=== PATIENT | female | born 1990 | race Caucasian/White ===

== ENCOUNTER → 2016-06-26 | Outpatient (CLI) | payer OTHER ==
[2016-06-26 11:09] LABS: BASOPHILS # (AUTO) 0.02 10*3/UL; BASOPHILS % (AUTO) 0.3 % (0-1); EOSINOPHILS % (AUTO) 0.8 % (0-8); HEMATOCRIT 38.9 % (37.0-47.0); HEMOGLOBIN 13.5 g/dL (12.0-16.0); IMM GRAN % (AUTO) 0.3 % (0-5); IMM GRAN# (AUTO) 0.02 10*3/UL; LYMPHOCYTES # (AUTO) 1.47 10*3/uL; LYMPHOCYTES % (AUTO) 19.9 % (10-50); MEAN CORPUSCULAR HEMOGLOBIN 29.9 PG (27-31); MEAN CORPUSCULAR HGB CONC 34.7 g/dL (33-37); MEAN PLATELET VOLUME 9.4 FL (7.4-12.2); MONOCYTES # (AUTO) 0.55 10*3/UL (0.3-0.8); MONOCYTES % (AUTO) 7.5 % (5-15); NEUTROPHILS # (AUTO) 5.25 10*3/UL; NEUTROPHILS % (AUTO) 71.2 % (50-80); RDW COEFFICIENT OF VARIATION 13.1 % (11.5-14.5); RED BLOOD COUNT 4.51 10^6/uL (4.20-5.40); WHITE BLOOD COUNT 7.37 10^3/uL (4.8-10.8)
[2016-06-26 11:10] LABS: PLATELET MORPHOLOGY COMMENT NORMAL MORPHOLOGY (NORM); PRENATAL QUESTION YES (Y)
[2016-06-26 11:30] LABS: FREE T4 (FREE THYROXINE) 0.86 ng/dL (0.93-1.71)
[2016-06-26 12:01] LABS: HIV ANTIBODY NEGATIVE (N); HIV-1 P24 ANTIGEN NEGATIVE (N)
[2016-06-27 14:19] LABS: HEP B SURFACE AG Negative (Negative); RUBELLA IGG INDEX 2.4 (()); SYPHILIS IGG WITH REFLEX Negative (Negative)
== END ==
LOC: MOB LAB 09:03
PROVIDERS: ATTEND Family Medicine
DX: O99.011 Anemia complicating pregnancy, first trimester (principal); D50.9 Iron deficiency anemia, unspecified; Z36 Encounter for antenatal screening of mother; Z83.49 Family history of other endocrine, nutritional and metabolic diseases
CPT/HCPCS: 36415; 80081; 82728; 83540; 83550; 84439; 84443; 86900; 86901; 87088

== ENCOUNTER → 2016-06-30 | Outpatient (CLI) | payer OTHER ==
--- NOTE | 2016-07-03 13:48 | DI ---
OBSTETRICAL ULTRASOUND, 06/30/2016 9:44 AM: Clinical History: Verify dates. Previous Exam: None at this facility for this . LMP: 04/28/2016. There is a single live IUP currently in unstable position. Amnionic fluid content is normal. The plac enta is posterior corpus and Grade 0. The inferior margin of the placenta extends into the lower uter ine segment in proximity to the internal os. Followup scans are recommended to reassess the final pos ition of the placenta. heart rate is 160 beats/minute and regular. Both ovaries are normal. CRL measurement is 46 mm. This measurement corresponds to an EGA value of 11 weeks 3 days. The US EDC is 01/16/2017. EDC by LMP is 02/02/2017. Readin. Single live fetus with unstable presentation and normal amniotic fluid content. 2. Placenta is posterior corpus and lower uterine segment and grade 0. The inferior margin of the pl acenta is in proximity to the internal os and followup scans are recommended to reassess the final po sition of the placenta. 3. The composite EGA is 11 weeks 3 days with an ultrasound the the of 01/16/2017 in contrast to the ED C of 02/02/2017 that is based on the LMP of 04/28/2016.
== END ==
LOC: US 09:40
PROVIDERS: ATTEND Family Medicine
DX: Z36 Encounter for antenatal screening of mother (principal)
CPT/HCPCS: 76801

== ENCOUNTER → 2016-08-22 | Outpatient (CLI) | payer OTHER ==
[2016-08-22 17:42] LABS: FREE T4 (FREE THYROXINE) 0.66 ng/dL (0.93-1.71)
[2016-08-25 10:41] LABS: BLACK RACE non-Black (()); DOWN SYNDROME RISK BY MOM'S AG 1/920 (()); GESTIONAL AGE FOR RISK ESTIMAT Scan estimate (()); MATERNAL WEIGHT/LBS 234 lbs (()); RECOMMENDED FOLLOW UP None. (()); TRISOMY 18 ESTIMATED RISK < 1/100 (())
[2016-08-25 10:43] LABS: GENERAL TEST INFO (QUAD SCREE) SEE COMMENTS (()); INHIBIN SEE COMMENTS (()); INTERPRETATION (QUAD SCREEN) SEE COMMENTS (()); OTHER INFORMATION (QUAD SCRN) Initial testing (()); uE3 SEE COMMENTS (())
== END ==
LOC: MOB LAB 16:28
PROVIDERS: ATTEND Family Medicine
DX: O99.281 Endocrine, nutritional and metabolic diseases complicating pregnancy, first trimester (principal); E03.9 Hypothyroidism, unspecified; Z36 Encounter for antenatal screening of mother; Z3A.19 19 weeks gestation of pregnancy
CPT/HCPCS: 36415; 81511; 84439; 84443

== ENCOUNTER → 2016-08-25 | Outpatient (CLI) | payer OTHER ==
--- NOTE | 2016-08-26 19:56 | DI ---
OBSTETRICAL ULTRASOUND, 08/25/2016 1:48 PM: Clinical History: Antepartum screening. Previous Exam: None at this facility for this . ADJUSTED DATE FROM EARLY OBUS: 04/11/2016. There is a single live IUP currently in unstable presentation. Amnionic fluid content is normal. Feta l activity is observed as follows: Cardiac, extremity, and respiratory. The placenta is posterior cor pus and Grade 1. heart rate is 136 beats/minute and regular. There is a 3 vessel cord. The RVOT , LVOT and 4 chamber heart view are normal. The aortic arch and descending aorta are normal. Views of the spine, face, and kidneys are unremarkable. BPD, HC, AC, and FL measurements are 45 mm, 169 mm, 142 mm, and 29 mm, respectively. These measurements correspond to EGA values of 19 weeks 5 days, 19 weeks 4 days, 19 weeks 4 days and 19 weeks 0 days, respectively. Composite EGA is 19 weeks 4 days . The US EDC is 01/15/2017.. EDC by adjusted LMP is 01/16/2017. Readin. Single live fetus with unstable presentation and normal amniotic fluid content. Placenta is poste rior corpus and grade 1. 2. The composite EGA is 19 weeks 4 days with an ultrasound EDC of 01/15/2017. Based on adjusted LMP d ate of 04/11/2016, the EDC would be 01/16/2017.
== END ==
LOC: US 13:45
PROVIDERS: ATTEND Family Medicine
DX: Z36 Encounter for antenatal screening of mother (principal); Z3A.19 19 weeks gestation of pregnancy
CPT/HCPCS: 76805

== ENCOUNTER → 2016-10-24 | Outpatient (CLI) | payer OTHER ==
[2016-10-24 10:27] LABS: HEMATOCRIT 36.3 % (37.0-47.0); HEMOGLOBIN 12.3 g/dL (12.0-16.0); MEAN CORPUSCULAR HGB CONC 33.9 g/dL (33-37); MEAN CORPUSCULAR VOLUME 91.4 FL (81-99); MEAN PLATELET VOLUME 8.8 FL (7.4-12.2); RED BLOOD COUNT 3.97 10^6/uL (4.20-5.40)
== END ==
LOC: LAB 09:07
PROVIDERS: ATTEND Family Medicine
DX: O99.283 Endocrine, nutritional and metabolic diseases complicating pregnancy, third trimester (principal); E03.9 Hypothyroidism, unspecified; Z36 Encounter for antenatal screening of mother; Z3A.28 28 weeks gestation of pregnancy
CPT/HCPCS: 36415; 82950; 84439; 84443; 85027

== ENCOUNTER → 2016-11-28 | Outpatient (CLI) | payer OTHER ==
--- NOTE | 2016-11-29 13:44 | DI ---
US OB , LIMITED,11/28/2016 2:55 PM: Clinical History: Size greater than dates. Previous Exam: August 25, 2016 Findings: Multiple grayscale and color Doppler sonographic images are obtained through the pelvis demonstrating a single live intrauterine gestation with size equal to dates. Amniotic fluid index is normal (18.5 cm). Detected Doppler heart tones measure 146 beats per minute. Estimated gestational age was determined by a composite of biparietal diameter, head circumference, a bdominal circumference and femur length yielding an estimated gestational age by ultrasound of 34 wee ks 5 days. Abdominal circumference measures at greater than the 98th percentile. The placenta is posterior and grade 2 without visible defects. Estimated weight is 2517 g (90 at percentile). Impression: Single live intrauterine gestation with estimated gestational age of 12 days larger than dates. Abdominal circumference at greater than the 98th percentile.
== END ==
LOC: US 14:52
PROVIDERS: ATTEND Family Medicine
DX: O26.843 Uterine size-date discrepancy, third trimester (principal); Z3A.33 33 weeks gestation of pregnancy
CPT/HCPCS: 76815

== ENCOUNTER → 2016-12-18 | Outpatient (CLI) | payer OTHER ==
[2016-12-18 13:06] LABS: FREE T4 (FREE THYROXINE) 0.9 ng/dL (0.93-1.71)
== END ==
LOC: MOB LAB 11:48
PROVIDERS: ATTEND Family Medicine
DX: Z36 Encounter for antenatal screening of mother (principal); O99.283 Endocrine, nutritional and metabolic diseases complicating pregnancy, third trimester; E03.9 Hypothyroidism, unspecified; Z3A.35 35 weeks gestation of pregnancy
CPT/HCPCS: 36415; 84439; 84443; 87150

== ENCOUNTER → 2016-12-18 | Outpatient (CLI) | payer OTHER ==
--- NOTE | 2016-12-18 11:10 | DI ---
LIMITED OBSTETRICAL ULTRASOUND, 12/18/2016 9:34 AM Clinical History: Uterine size-date discrepancy. Large for dates. Previous Exam: 11/28/2016. ADJUSTED LMP: 04/11/2016. There is a single live IUP currently in vertex presentation. Amnionic fluid content is mildly increas ed for this stage of . Amnionic fluid index is 15.5 cm. activity is observed as follow s: cardiac and extremity. The placenta is posterior corpus and Grade 1. heart rate is 152 beats /minute and regular. BPD, HC, AC, and FL measurements are 93 mm, 340 mm, 347 mm, and 68 mm, respectiv ivan. These measurements correspond to EGA values of 37 weeks 6 days, 39 weeks 1 day, 38 weeks 5 days, and 35 weeks 0 days, respectively. Composite EGA is 37 weeks 5 days. The US EDC is 01/03/2017. EDC by adjusted LMP is 01/16/2017. LMP percentile is 93%. Estimated weight is 3294 g, plus or minus 481 g. Readin. Single live fetus with vertex presentation and mild increased amniotic fluid content. Amnionic fl uid index is 15.5 cm. Placenta is posterior corpus and grade 1. 2. The composite EGA is 37 weeks 5 days with an ultrasound EDC of 01/03/2017. Based on the adjusted L MP date of 04/11/2016, the EDC would be 01/16/2017. 3. LMP percentile is 93%. Estimated weight is 3294 g, plus or minus 481 g.
== END ==
LOC: US 09:31
PROVIDERS: ATTEND Family Medicine
DX: O26.843 Uterine size-date discrepancy, third trimester (principal); Z3A.35 35 weeks gestation of pregnancy
CPT/HCPCS: 76815

== ENCOUNTER 2017-01-09 04:25 | Inpatient (IN) | payer OTHER ==
[2017-01-09] MEDS ORDERED: CefOXitin Inj 2 GM in Sodium Chloride 0.9% 100 ML IV PRN (04:26)
[2017-01-09] MEDS ORDERED: Naloxone Inj 0.01 MG in Normal Saline Flush 1 ML IVP PRN (04:26)
[2017-01-09] MEDS ORDERED: ONDANSETRON 4 MG/2 ML VIAL IVP PRN (04:26)
[2017-01-09] MEDS ORDERED: TERBUTALINE SULFATE 1 MG/1 ML SDV SUBCUT PRN (04:26)
[2017-01-09] MEDS ORDERED: OXYTOCIN 10 UNIT/1 ML IM PRN (04:26)
[2017-01-09] MEDS ORDERED: Carboprost Inj 250 MCG/ML AMP IM PRN (04:26)
[2017-01-09] MEDS ORDERED: CALCIUM CARBONATE 500 MG (TUMS) CHEWABLE TABLET PO PRN (04:26)
[2017-01-09] MEDS ORDERED: Lidocaine 1% 10 MG/ML - 20 ML VIAL SUBCUT PRN (04:26)
[2017-01-09] MEDS ORDERED: METHYLERGONOVINE MALEATE 0.2 MG/1 ML VIAL IM PRN (04:26)
[2017-01-09] MEDS ORDERED: Phenylephrine Inj 50 MCG in Normal Saline Flush 0.5 ML IVP PRN (04:26)
[2017-01-09] MEDS ORDERED: NORMAL SALINE 10 ML SYRINGE FLUSH IVP PRN (04:26)
[2017-01-09] MEDS ORDERED: MISOPROSTOL 200 MCG TABLET RECTAL PRN (04:26)
[2017-01-09] MEDS ORDERED: NALOXONE 0.4 MG/1 ML VIAL IVP PRN (04:26)
[2017-01-09] MEDS ORDERED: LIDOCAINE W/ SODIUM BICARB 0.5 ML SYR SUBD PRN (04:26)
[2017-01-09] MEDS ORDERED: Metoclopramide Inj 10 MG/2 ML VIAL IV PRN (04:26)
[2017-01-09] MEDS ORDERED: Famotidine Inj 20 MG in Normal Saline Flush 10 ML IVP PRN ×4 (04:26)
[2017-01-09] MEDS ORDERED: diphenhydrAMINE 50 MG/1 ML VIAL IVP PRN (04:26)
[2017-01-09] MEDS ORDERED: fentaNYL Inj 100 MCG/2 ML VIAL IV PRN (04:26)
[2017-01-09] MEDS ORDERED: BUTORPHANOL TARTRATE 2 MG/1 ML VIAL IVP PRN (04:26)
[2017-01-09] MEDS ORDERED: CITRIC ACID/SODIUM CITRATE 30 ML CUP PO PRN (04:26)
[2017-01-09] MEDS ORDERED: ePHEDrine Inj 5 MG in Normal Saline Flush 1 ML IVP PRN (04:26)
[2017-01-09] MEDS ORDERED: Oxytocin 20 Units + LR 1,000 ML IV SCH ×2 (04:30)
[2017-01-09 05:32] LABS: HEMATOCRIT 37.8 % (37.0-47.0); HEMOGLOBIN 12.9 g/dL (12.0-16.0); MEAN CORPUSCULAR HEMOGLOBIN 31.1 PG (27-31); MEAN CORPUSCULAR HGB CONC 34.1 g/dL (33-37); MEAN CORPUSCULAR VOLUME 91.1 FL (81-99); RED BLOOD COUNT 4.15 10^6/uL (4.20-5.40)
[2017-01-09 05:33] LABS: MEAN PLATELET VOLUME 9.6 FL (7.4-12.2)
[2017-01-09] MEDS: Lactated Ringers-OB Dept 1,000 ML PRIMARY IV SCH ×3 (05:37→16:05)
[2017-01-09] MEDS ORDERED: Fent/Bupiv 2mcg/0.0625% Epid 250 ML ONE ×2 (09:11→15:41)
--- NOTE | 2017-01-09 09:24 | CRNA.PROCE ---
Central Neuraxis Block Placemt - - Safety Measures: Time Out Taken, Site Verified - - Type of Block: Epidural Reason for Block: Analgesia Moniters Used During Block: SPO2, NIBP Positioning: Sitting Skin Prep Used: Betadine Draped: Yes Skin Infiltration - Enter Amount Used in Comment Field: 1% Xylocaine (mL): Yes Spinal Needle Used: 18 Hustead 80 mm Local Anesthetic - Enter Amount Used in Comment Field: 5.0 % Xylocaine with Dextrose (ml): Yes (5ml) Number of Centimeters Catheter Threaded: 4 Bioclusive Dressing Applied: Yes
[2017-01-09] MEDS ORDERED: BUPivacaine Inj 0.25% PF - 10ml vial ONE (09:59)
[2017-01-09] MEDS ORDERED: fentaNYL 2 MCG/BUPIVACAINE 0.0625%/NS 0.9% 250 ML BAG EPIDURAL SCH (16:00)
--- NOTE | 2017-01-09 16:01 | CRNA.PROCE ---
Central Neuraxis Block Placemt - - Safety Measures: Time Out Taken, Site Verified - - Type of Block: Epidural Reason for Block: Analgesia Moniters Used During Block: SPO2, NIBP Positioning: Sitting Skin Prep Used: ChloroPrep Draped: Yes Skin Infiltration - Enter Amount Used in Comment Field: 1% Xylocaine (mL): Yes ( skin wheal) Spinal Needle Used: 18 Hustead 80 mm Local Anesthetic - Enter Amount Used in Comment Field: 1.5 % Xylocaine with Epinephrine 1:200,000 (mL): Yes (5ml) Number of Centimeters Catheter Threaded: 4 Bioclusive Dressing Applied: Yes
[2017-01-09] MEDS: Nalbuphine Inj 20 MG/ML Ampule IVP PRN ×2 (18:46→19:27)
--- NOTE | 2017-01-09 19:06 | OB.PROGRES ---
Date and Time of Service: 01/09/17 @ 1815 Interval History: Pt is comfortable with her epidural, just itchy. No other complaints. Objective - Cervical Exam Cervical Exam: 5-6/80/-2 [place]: every 2-3 minutes, some couplets. Heart Rate: 145 baseline, + accels, moderate variability. Some very small variables. - Labs CBC and BMP: 01/09/17 05:10 Labs - Last 24 Hours: Laboratory Results 01/09/17 Range/Units 05:10 WBC 7.86 (4.8-10.8) 10^3/uL RBC 4.15 L (4.20-5.40) 10^6/uL Hgb 12.9 (12.0-16.0) g/dL Hct 37.8 (37.0-47.0) % MCV 91.1 (81-99) FL MCH 31.1 H (27-31) PG MCHC 34.1 (33-37) g/dL RDW Std Deviation 46.7 (39-50) fL RDW Coeff of Derek 14.5 (11.5-14.5) % Plt Count 214 (140-350) 10*3/uL MPV 9.6 (7.4-12.2) FL - Vital Signs Last Taken Vital Signs: Vital Signs - Last Taken Temperature 97.8 F 01/09/17 16:45 Pulse Rate 106 H 01/09/17 18:00 Respiratory Rate 16 01/09/17 17:45 Blood Pressure 117/64 01/09/17 17:45 Pulse Ox 100 01/09/17 18:00 Assessment and Plan - Patient Problems (1) Polyhydramnios affecting in third trimester Current Visit: Yes Status: Acute - Assessment / Plan Additional Assessment/Plan Details: -discussed the current status and findings with the pt. -she has had very slow cervical change through the early part of what should be active labor. The head is still quite high in the pelvis and feels asynclitic. The nurses have tried numerous position changes with the pt throughout the day and she has been in high fowlers position as well. The head is not well applied to the cervix. -AROM was completed earlier this afternoon, around 1530, which was productive of clear fluid. An IUPC was placed a short time ago to accurately document her contractions and the amount of pitocin needed to keep them adequate. Will have a goal of MVUs around 200. -GBS negative. -Discussed that if she doesn't have cervical change in the next 4 hours, then there would be an indication of a section. The pt is really wishing to avoid that at this time. If baby continues to look good, we may shut the pitocin off or turn to low dose overnoc and hopefully the baby will change position on its own to a more favorable presentation. Will continue to follow her closely. -expectant management.
[2017-01-09] MEDS ORDERED: BUPIVACAINE EPIDURAL ONE (21:11)
[2017-01-09] MEDS ORDERED: SODIUM CHLORIDE EPIDURAL ONE (21:11)
--- NOTE | 2017-01-10 00:01 | OB.DEL.SUM ---
Delivery Note Delivery Summary: Pt is a 26 yo G2 now P2 at 39 0/7 weeks by early /s who presented this morning for induction of labor secondary to polyhydramnios. Her cervix was 2/60/-2 to - 3 on admission. She was cameron on admit, and her contractions were augmented with pitocin as they were mild. She changed her cervix to 4 cm in 2-3 hours, however AROM was not completed until 10 hours after admission due to the high station of the baby's head. AROM was finally completed at 1530, with return of clear fluid. Her cervix was 6 cm at 1800. She was placed in the knee- chest position by the nurse and changed to 9 cm rather quickly. She was complete at approximately 2145 and began pushing a short time later. She delivered a viable male infant over an intact perineum at 2222. The baby's nose and mouth were suctioned with the bulb suction and the cord was doubly clamped by myself. The cord was cut by the father of the baby. Baby was placed on mom's chest. Cord blood and cord gases were obtained for analysis. The placenta delivered spontaneously and intact with a 3 vessel cord a short time later. 20 mU of pitocin was infused. The vagina and perineum were examined and no lacerations were noted. The pt began to have heavier vaginal bleeding with some mild atony of the uterus, so methergine was given with improved hemostasis. Apgars were 9 at 1 minute and 9 at 10 minutes. Baby weighed 8#2oz. Both mom and baby tolerated delivery well and are in good condition at this time. - Patient Problems (1) Polyhydramnios affecting in third trimester Current Visit: Yes Status: Acute
[2017-01-10] MEDS ORDERED: Nalbuphine Inj 20 MG/ML Ampule IVP PRN (01:46)
[2017-01-10] MEDS ORDERED: METHYLERGONOVINE MALEATE 0.2 MG/1 ML VIAL IM PRN (01:46)
[2017-01-10] MEDS ORDERED: NORMAL SALINE 10 ML SYRINGE FLUSH IVP PRN (01:46)
[2017-01-10] MEDS ORDERED: Oxytocin 20 Units + LR 1,000 ML IV SCH (01:46)
[2017-01-10] MEDS ORDERED: diphenhydrAMINE 25 MG CAPSULE PO PRN (01:46)
[2017-01-10] MEDS ORDERED: MISOPROSTOL 200 MCG TABLET RECTAL ONE (01:46)
[2017-01-10] MEDS ORDERED: BENZOCAINE/MENTHOL SPRAY 56 GM BOTTLE TOPICAL PRN (01:46)
[2017-01-10] MEDS ORDERED: Carboprost Inj 250 MCG/ML AMP IM PRN (01:46)
[2017-01-10] MEDS ORDERED: CALCIUM CARBONATE 500 MG (TUMS) CHEWABLE TABLET PO PRN (01:46)
[2017-01-10] MEDS ORDERED: ONDANSETRON 4 MG/2 ML VIAL IVP PRN (01:46)
[2017-01-10] MEDS ORDERED: GLYCERIN/WITCH HAZEL 1 BOX TOPICAL PRN (01:46)
[2017-01-10] MEDS ORDERED: OXYTOCIN 10 UNIT/1 ML IM ONE (01:46)
[2017-01-10] MEDS ORDERED: LANOLIN HPA 40 GM TUBE TOPICAL PRN (01:46)
[2017-01-10] MEDS ORDERED: Ondansetron ODT Tab 4 MG TAB PO PRN (01:46)
[2017-01-10] MEDS ORDERED: DIPH,PERTUSS,TET(ADACEL) VAC/PF 0.5 ML (Tdap) IM ONE (01:46)
[2017-01-10] MEDS ORDERED: HYDROcodone-APAP 5 MG -325 MG TABLET PO PRN (01:46)
[2017-01-10] MEDS ORDERED: Methylergonovine Tab 0.2 MG TAB PO PRN (01:46)
[2017-01-10] MEDS ORDERED: ACETAMINOPHEN 325 MG TABLET PO PRN (01:46)
[2017-01-10] MEDS ORDERED: diphenhydrAMINE 50 MG/1 ML VIAL IVP PRN (01:46)
[2017-01-10] MEDS: Lactated Ringers-OB Dept 1,000 ML PRIMARY IV SCH (02:14)
[2017-01-10] MEDS: DOCUSATE 100 MG CAPSULE PO SCH ×2 (08:18→21:10)
[2017-01-10] MEDS: Prenatal Multivitamin Tab 1 TAB TAB PO SCH (08:18)
[2017-01-10] MEDS: IBUPROFEN 800 MG TABLET PO PRN ×2 (08:18→15:12)
[2017-01-10 09:07] LABS: HEMATOCRIT 37.3 % (37.0-47.0); HEMOGLOBIN 12.6 g/dL (12.0-16.0); MEAN CORPUSCULAR HEMOGLOBIN 31.2 PG (27-31); MEAN CORPUSCULAR VOLUME 92.3 FL (81-99); RED BLOOD COUNT 4.04 10^6/uL (4.20-5.40)
[2017-01-10 09:08] LABS: MEAN CORPUSCULAR HGB CONC 33.8 g/dL (33-37); MEAN PLATELET VOLUME 9.3 FL (7.4-12.2)
--- NOTE | 2017-01-10 09:14 | CRNA.PROGR ---
Anesthesia Note Anesthesia Progress Note: Post Epidural Note Pt is sitting up in bed with . She denies any residual problems from the epidural. She denies any low back pain or symptoms of post dural puncture head ache. I reiterated the increased risk of post dural puncture head ache and to notify us if any symptoms begin even after returning home. Current VS stable. Vital Signs - Last Taken Temperature 100.0 F H 01/10/17 02:45 Pulse Rate 96 01/10/17 02:45 Respiratory Rate 16 01/10/17 02:45 Blood Pressure 144/66 01/10/17 02:45 Pulse Ox 94 01/10/17 02:45
[2017-01-10] MEDS ORDERED: HYDROCORTISONE 1% CREAM - 28.35 GM TOPICAL PRN (15:06)
[2017-01-11] MEDS: Prenatal Multivitamin Tab 1 TAB TAB PO SCH (08:20)
[2017-01-11] MEDS: DOCUSATE 100 MG CAPSULE PO SCH (08:20)
[2017-01-11] MEDS: IBUPROFEN 800 MG TABLET PO PRN (08:21)
--- NOTE | 2017-01-11 08:57 | OB.PROGRES ---
Subjective Post Day: 1 Pain Management: PO Lovell Catheter: No Flatus: Yes Diet: Regular [place] Feeding Method: Exculsively Ambulating: Yes Concerns / Additional Information: Has tape reaction on her lower back where the occlusive dressing for her epidural was placed. Back also feeling 'bruised.' Objective - General General Appearance: POSITIVE: No Acute Distress, Cooperative - Cardiovacular Cardiovascular Exam: POSITIVE: RRR, No Murmur Edema: +2 Pedal Edema Extremities: Negative Benny's - Bilaterally - Respiratory Respiratory Exam: POSITIVE: Clear to Auscultation - Bilaterally, Breathing Non Labored Assesstment / Plan (1) Polyhydramnios affecting in third trimester Current Visit: Yes Status: Acute Assessment / Plan: -routine cares. -will start hydrocortisone for local reaction on back from tape adhesive. -breast feeding coming along slowly. -rh positive. -rubella immune. -d/c home probably tomorrow.
[2017-01-11 10:18] VITALS: RESP 18; TEMP 98.3
--- NOTE | 2017-01-14 23:52 | OB.PROGRES ---
Subjective Post Day: 2 Pain Management: PO Lovell Catheter: No Flatus: Yes Diet: Regular [place] Feeding Method: Exculsively Ambulating: Yes Concerns / Additional Information: She just got out of the shower and has a lot of irritation and redness to where the occlusive epidural dressing was on her back. Also just having some general low back pain/achiness. Breast feeding going much better today. Objective - General General Appearance: POSITIVE: No Acute Distress, Cooperative - Cardiovacular Cardiovascular Exam: POSITIVE: RRR, No Murmur Edema: +1 Pedal Edema Extremities: Negative Benny's - Bilaterally - Respiratory Respiratory Exam: POSITIVE: Clear to Auscultation - Bilaterally, Breathing Non Labored - Abdomen Bowel Sounds: Present - Fundus/Lochia/Perineum Uterus Consistency: Firm Uterus Position: POSITIVE: At Umbilicus Perineum Description: POSITIVE: Intact Assesstment / Plan (1) Polyhydramnios affecting in third trimester Status: Acute (2) Vaginal delivery Status: Acute Assessment / Plan: -routine cares. -breast feeding going much better. -rubella immune. -rh positive. -will apply hydrocortisone cream to her back to decrease irritation. -offered PT for back pain -d/c home later this afternoon. -f/u at 6 week visit.
--- NOTE | 2017-01-14 23:54 | DCSUMMARY ---
Hospitalization Summary Admit Date: 01/09/17 Discharge Date: 01/11/17 Primary Diagnosis:: IUP 39 weeks, with polydramnios Delivery Type: Vaginal Hospital Course: Pt was admitted at term for induction of labor secondary to polyhydramnios. / Postop Complications: Pt had a normal course, with no immediate complications. [place] Complications: None noted. Exam - Vitals Vital Signs: Vital Signs Temperature 98.3 F Temperature Source Oral Pulse Rate [Apical] 66 Pulse Rate [Pulse Oximeter] 67 Pulse Rate 98 Respiratory Rate [contractions 16 - front] Respiratory Rate 18 Blood Pressure [Left Arm] 126/78 Blood Pressure [Right Arm] 115/58 Blood Pressure 132/77 Pulse Ox 99 Oxygen Flow Rate [contractions ra - front] Oxygen Delivery Method Room Air Height 5 ft 8 in Weight 267 lb 6.4 oz Patient Problems - Patient Problem List (1) Polyhydramnios affecting in third trimester Status: Acute (2) Vaginal delivery Status: Acute
== END 2017-01-11 13:35 | disposition home or self-care (01) | DRG 775 ==
LOC: UNDOADMIN 04:25 → OBIP 04:25
PROVIDERS: ADMIT Family Medicine; ATTEND Family Medicine
PROC: 3E033VJ Introduction of Other Hormone into Peripheral Vein, Percutaneous Approach (ICD-10-PCS; principal; 2017-01-09)
PROC: 10E0XZZ Delivery of Products of Conception, External Approach (ICD-10-PCS; 2017-01-10)
DX: O40.3XX0 Polyhydramnios, third trimester, not applicable or unspecified (principal); Z3A.39 39 weeks gestation of pregnancy; Z37.0 Single live birth
CPT/HCPCS: 36415; 81003; 85027; J2210; J2405; J3010; J7120; Q0163

== ENCOUNTER 2017-01-16 21:04 | Inpatient (IN) | payer OTHER ==
[2017-01-16] MEDS ORDERED: Sodium Chloride 0.9% 1,000 ML ONE (21:19)
[2017-01-16] MEDS ORDERED: NORMAL SALINE 10 ML SYRINGE FLUSH IVP PRN (21:21)
[2017-01-16] MEDS ORDERED: Sodium Chloride 0.9% 1,000 ML PRIMARY IV ONE (21:21)
[2017-01-16] MEDS ORDERED: MORPHINE SULFATE 2 MG/1 ML IV ONE (21:21)
[2017-01-16] MEDS ORDERED: ONDANSETRON 4 MG/2 ML VIAL IVP ONE (21:21)
--- NOTE | 2017-01-16 21:21 | PDOC ---
Abdomen/Flank HPI - General Chief Complaint: Abdomen Pain Stated Complaint: VAGINAL BLEEDING AND PAIN Date Seen by Provider: 01/16/17 Time Seen by Provider: 21:10 Source: POSITIVE: Patient Exam Limitations: POSITIVE: No limitations Nurse's Notes Reviewed & Considered: Yes - History of Present Illness Initial Comments: The patient is a 26-year-old who is approximately one week status post vaginal delivery who presents to the emergency department with abdominal pain, fevers and chills and continued vaginal bleeding. She states that she had a normal delivery approximately a week ago. Since the delivery she has had some vaginal bleeding which she states consists of dark mucousy colored blood. Over the past 24 hours she has developed significant increase in primarily left lower abdominal pain with some pain radiating to her left flank. She also has associated fevers and chills this afternoon. She has nausea without associated vomiting. She denies any urinary symptoms although she does report that the pain seems intensified after she urinates. She does report that she had some retained placental products after the delivery of her first child. She has not had any prior abdominal surgeries. - Patient Home Medications Home Medications: Home Medications Pnv/Iron,Carbonyl/Docusate/FA [Mynatal Ultracaplet] 1 tab PO DAILY #90 tab 07/25 Levothyroxine Sodium 1 tab PO DAILY #30 tab 01/01/17 Docusate Sodium [Colace] 100 mg PO BID #30 cap 01/11/17 Ibuprofen [Motrin] 800 mg PO Q8H PRN #30 tab 01/11/17 - Patient Allergies Allergies/Adverse Reactions: Allergies Allergy/AdvReac Type Severity Reaction Status Date / Time latex Allergy Intermediate rash Verified 01/17/17 02:29 Penicillins Allergy NOT Verified 01/17/17 02:29 APPLICABLE Sulfa (Sulfonamide Allergy NOT Verified 01/17/17 02:29 Antibiotics) APPLICABLE Past Medical History - heen HEENT History: Denies History Cardiovascular History: Denies History Respiratory History: Denies History Gastrointestinal History: Denies History Genitourinary History: Denies History Endocrine History: Hypothyroidism Musculoskeletal History: Denies History Neurological History: Migraines, Motion Sickness Blood Disorders: Denies History Psychiatric History: Denies History Cancer History: Denies History History of MDRO: No Alcohol Use: None Substance Use Type: None Previous Surgical History: Yes Type / Date of Surgery: TONSILECTOMY, WRIST Anesthesia Reactions: Yes Malignant Hyperthermia: No Significant Family History: Diabetes, Hypertension, Renal disease, Seizures Past Medical History Reviewed: Reviewed - No Changes ROS - Limitations ROS Limitations: No Limitations Constitution: REPORTS: Chills, Fever Cardiovascular: REPORTS: Denies Cardiac Symptoms Respiratory: REPORTS: Denies Resp Symptoms Neurological: REPORTS: Denies Neuro Symptoms Gastrointestinal: REPORTS: Abdominal Pain, Nausea. DENIES: Vomitting, Diarrhea , Black Stools, Bloody Stools, Constipation Musculoskeletal: REPORTS: Other (The pain in her left lower back she states she has had since she had her baby, she did have an epidural and apparently they had somewhat of a difficult time placing it and it had to be redone twice, she did have pain in her left side after the epidural.) Genitourinary: DENIES: Dysuria, Difficulty Urinating Eyes: REPORTS: Denies Symptoms ENT: REPORTS: Denies Symptoms Skin: DENIES: Rash Abdominal/Flank Pain PE - General Appearance General Appearance: POSITIVE: Alert, Cooperative, No Acute Distress, Other (She does appear ill) - HEENT HEENT: POSITIVE: Head Inspection Nml, Eyes Inspection Nml, Ears Inspection Nml, Dry Mucous Membranes - Neck Neck: POSITIVE: Normal Inspection - Respiratory Respiratory: POSITIVE: No Respiratory Distress, Breath Sounds Normal - Cardiovascular Cardiovascular: POSITIVE: Regular Rate and Rhythm, Heart Sounds Normal Peripheral Pulses: Dorsalis-pedis (R): 2+, Dorsalis-pedis (L): 2+ - Abdomen Abdomen: Soft: (All Quadrants), Normal Bowel Sounds: (All Quadrants), No Guarding: (All Quadrants), No Rebound: (All Quadrants) Additional Abdominal Details: She does have tenderness in the suprapubic and left lower abdomen, no guarding or rebound tenderness, some left-sided CVA tenderness as well. Uterus is enlarged and palpable on exam and she does have tenderness to palpation over the fundus of the uterus. - Back Back: POSITIVE: CVA Tenderness (L) (Mild) - Skin Skin: POSITIVE: Intact Abdomen Progress - Results Reviewed by me Xrays/CTs/US Reviewed by me: Yes Discussed with Radiologist: Yes Radiology Findings: CT scan of the abdomen and pelvis with IV contrast reveals enlarged uterus consistent with uterus, no other acute findings per radiologist. Pelvic ultrasound reveals some nonspecific density in the lower uterine segment which is favored to be blood rather than placental product. Lab Results Reviewed: Yes Lab Results:: Laboratory Results 01/16/17 01/16/17 Range/Units 21:35 23:10 WBC 16.00 H (4.8-10.8) 10^3/uL RBC 4.95 (4.20-5.40) 10^6/uL Hgb 15.4 (12.0-16.0) g/dL Hct 44.5 (37.0-47.0) % MCV 89.9 (81-99) FL MCH 31.1 H (27-31) PG MCHC 34.6 (33-37) g/dL RDW Std Deviation 45.1 (39-50) fL RDW Coeff of Derek 13.8 (11.5-14.5) % Plt Count 266 (140-350) 10*3/uL MPV 9.1 (7.4-12.2) FL Immature Gran % (Auto) 0.3 (0-5) % Neut % (Auto) 83.2 H (50-80) % Lymph % (Auto) 5.1 L (10-50) % [place] % (Auto) 10.6 (5-15) % Eos % (Auto) 0.5 (0-8) % Baso % (Auto) 0.3 (0-1) % Immature Gran # (Auto) 0.05 10*3/UL Neut # (Auto) 13.32 10*3/UL Lymph # (Auto) 0.82 10*3/uL [place] # (Auto) 1.69 H (0.3-0.8) 10*3/UL Eos # (Auto) 0.08 10*3/UL Baso # (Auto) 0.04 10*3/UL WBC Morphology Comment Normal morphology (NORM) Plt Morphology Comment Normal morphology (NORM) RBC Morph Comment Normal morphology (NORM) Sodium 137 (135-145) meq/L Potassium 3.5 L (3.8-5.2) meq/L Chloride 105 (98-112) meq/L Carbon Dioxide 20 L (23-33) meq/L Anion Gap 12 (5-20) BUN 14 (7-22) mg/dL Creatinine 0.8 (0.50-1.20) mg/dL Estimated GFR > 60 (>60 ml/min/1.73m(2)) BUN/Creatinine Ratio 17.50 (6-20) Glucose 93 (78-110) mg/dL Calculated Osmolality 284.0 (267-292) mOsm/kg Calcium 9.1 (8.7-10.7) mg/dL Total Bilirubin 0.9 (0.3-1.2) mg/dL AST 18 (8-39) IU/L ALT 26 (9-52) IU/L Alkaline Phosphatase 112 (38-126) IU/L C-Reactive Protein 2.7 H (0.0-0.9) mg/dL Total Protein 7.6 (6.1-8.0) g/dL Albumin 4.1 (3.5-4.8) g/dL Globulin 3.4 (2.50-4.10) g/dL Albumin/Globulin Ratio 1.20 L (1.3-2.0) mg/g Amylase 82 (30-110) U/L Lipase 58 (23-300) IU/L Ur Collection Type Clean catch urine Urine Color Yellow Urine Clarity Clear (CLEAR) Urine pH 6.0 (5.0-8.5) Ur Specific [place] 1.013 (1.005-1.030) Urine Protein Negative (NEG) mg/dl Urine Glucose (UA) Negative (NEG) mg/dL Urine Ketones Negative (NEG) Urine Occult Blood Moderate H (NEG) Urine Nitrate Negative (NEG) Urine Bilirubin Negative (NEG) Urine Urobilinogen 0.2 (0.2) EU/dL Ur Leukocyte Esterase Small (NEG) Urine RBC 1-3 (NONE) /hpf Urine WBC 9-14 (NONE) Ur Squamous Epith Cells Few (NONE) Ur Renal Epithelial Cell None (NONE) Urine Crystals None Urine Bacteria Moderate (NONE) Urine Casts Rare (NONE) Urine Mucus None (NONE) Urine Trichomonas None (NONE) Urine Yeast None (NONE) Ur Culture Indicated? Culture set - Patient's Progress MDM / ED Course: The patient was tachycardic and appeared ill on arrival. She did receive 1 L bolus of normal saline as well as morphine and Zofran for pain. She does have continued vaginal bleeding as well as lower abdominal pain and uterine tenderness on exam. Her white blood cell count was elevated at 16,000. Urinalysis does reveal 9-14 white blood cells and a culture is pending however there is no evidence of pyelonephritis on her CT. The ultrasound does not show any obvious retained products of conception. Her clinical presentation is consistent with endometritis. I did discuss the patient with Dr. Nugent. He recommended admission and treatment with IV antibiotics. She was started on Invanz 1 g IV. Blood cultures and lactate were obtained prior to initiation of antibiotics. Her lactate was normal. Dr. Claros has agreed to admit the patient with consultation from CHEMICAL PROCESSING TECHNICIAN in the morning either from Dr. Nugent or Dr. Corrales. - Consult Counseled: POSITIVE: Patient, Family, RE: Lab Results, RE: Radiology Results, RE : DX Patient Care Time - Estimated PCT Patient Care Time (In Minutes): 35 Vital Signs - Recent Vital Signs Vital Signs: Vital Signs (Last 8 hours) Temp Pulse Pulse Resp BP BP Pulse Ox 01/17/17 05:16 101 F H 01/17/17 05:00 101.0 F H 119 H 20 119/59 92 01/17/17 01:23 97.8 F 106 H 18 126/80 97 01/17/17 01:00 97.7 F 96 18 128/95 97 - VS Reviewed Vital Signs Reviewed: Yes Discharge Clinical Impression: Puerperal endometritis, Urinary tract infection Discharge Disposition: Admit to Inpatient Condition: Fair Date Decision to Admit to Inpatient: 01/17/17 Time Decision to Admit to Inpatient: 00:35
[2017-01-16 21:39] LABS: BASOPHILS # (AUTO) 0.04 10*3/UL; BASOPHILS % (AUTO) 0.3 % (0-1); EOSINOPHILS # (AUTO) 0.08 10*3/UL; EOSINOPHILS % (AUTO) 0.5 % (0-8); HEMATOCRIT 44.5 % (37.0-47.0); HEMOGLOBIN 15.4 g/dL (12.0-16.0); LYMPHOCYTES # (AUTO) 0.82 10*3/uL; MEAN CORPUSCULAR HEMOGLOBIN 31.1 PG (27-31); MEAN CORPUSCULAR HGB CONC 34.6 g/dL (33-37); MEAN CORPUSCULAR VOLUME 89.9 FL (81-99); MEAN PLATELET VOLUME 9.1 FL (7.4-12.2); MONOCYTES # (AUTO) 1.69 10*3/UL (0.3-0.8); MONOCYTES % (AUTO) 10.6 % (5-15); NEUTROPHILS # (AUTO) 13.32 10*3/UL; NEUTROPHILS % (AUTO) 83.2 % (50-80); RED BLOOD COUNT 4.95 10^6/uL (4.20-5.40)
[2017-01-16 21:41] LABS: PLATELET MORPHOLOGY COMMENT NORMAL MORPHOLOGY (NORM); RBC MORPHOLOGY COMMENT NORMAL MORPHOLOGY (NORM); WBC MORPHOLOGY COMMENT NORMAL MORPHOLOGY (NORM)
[2017-01-16 21:51] LABS: BLOOD UREA NITROGEN 14 mg/dL (7-22); C-REACTIVE PROTEIN 2.7 mg/dL (0.0-0.9); CALCIUM 9.1 mg/dL (8.7-10.7); EST GLOMERULAR FILTRATION > 60 (>60 ml/min/1.73m(2)); LIPASE 58 IU/L (23-300); SERUM ALBUMIN 4.1 g/dL (3.5-4.8)
[2017-01-16 23:14] LABS: BILIRUBIN,URINE NEGATIVE (NEG); CLARITY,URINE CLEAR (CLEAR); COLOR,URINE YELLOW; GLUCOSE, URINE (UA) NEGATIVE (NEG); NITRATE,URINE NEGATIVE (NEG); OCCULT BLOOD,URINE MODERATE (NEG); PROTEIN,URINE NEGATIVE (NEG); UROBILINOGEN,URINE 0.2 EU/dL (0.2)
[2017-01-16 23:23] LABS: BACTERIA,URINE MODERATE; SQUAMOUS EPITHELIAL CELL,UR FEW; URINE SAMPLE TYPE CLEAN CATCH URINE
[2017-01-16 23:24] LABS: URINE CASTS RARE
[2017-01-17] MEDS ORDERED: Ertapenem Inj 1 GM in Sodium Chloride 0.9% 100 ML IV ONE (00:03)
--- NOTE | 2017-01-17 00:15 | PDOC ---
History and Physical - History of Present Illness History of Present Illness: This very nice 26-year-old female 1 week post the vaginal delivery presented to the emergency department with abdominal pain and fever and chills and some mild vaginal bleeding she was treated with the IV antibiotics in the ER and fluids Dr. Olsen at spoken to Dr. Nugent who had the hospitalist admit the patient Today she is pain-free has no complaints she has multiple questions about her breast-feeding I did call Dr. Corrales which will be taken over the case Past Medical History Medical History: hypothyroidism Substance Use Type: None Alcohol Use: None Medication / Allergies Home Medications: Home Medications Medication Instructions Recorded Confirmed Type Pnv/Iron,Carbonyl/Docusate/FA 1 tab PO DAILY #90 tab 07/25/16 01/17/17 Clinic [Mynatal Ultracaplet] Levothyroxine Sodium 1 tab PO DAILY #30 tab 01/01/17 01/17/17 Clinic Docusate Sodium [Colace] 100 mg PO BID #30 cap 01/11/17 01/17/17 Rx Ibuprofen [Motrin] 800 mg PO Q8H PRN #30 tab 01/11/17 01/17/17 Rx Allergies/Adverse Reactions: Allergies Allergy/AdvReac Type Severity Reaction Status Date / Time latex Allergy Intermediate rash Verified 01/17/17 02:29 Penicillins Allergy NOT Verified 01/17/17 02:29 APPLICABLE Sulfa (Sulfonamide Allergy NOT Verified 01/17/17 02:29 Antibiotics) APPLICABLE Review of Systems - Review of Systems All Systems: Reviewed & No Additional Complaints Except as Stated - Gynecological Gynecological: REPORTS: Vaginal Bleeding, Pelvic Pain Exam - Vitals Vital Signs: Vital Signs Height 5 ft 8 in Weight 113.398 kg - General General Appearance: POSITIVE: No Acute Distress, Cooperative - Head Head Exam: POSITIVE: Normal Inspection, Normocephalic, Atraumatic - Respiratory Respiratory Exam: POSITIVE: Clear to Auscultation - Bilaterally, Breathing Non Labored, Normal To Percussion - Cardiovascular Cardiovascular Exam: POSITIVE: RRR, No Murmur, No Clicks - GI/Abdominal GI/Abdominal Exam: POSITIVE: Non Tender, Non Distended, Soft - Extremities Extremities Exam: POSITIVE: No Clubbing Present, No Edema Present, No Cyanosis Present Results - Labs CBC and BMP: 01/17/17 10:20 01/17/17 10:20 Labs - Last 24 Hours: Laboratory Results 01/16/17 01/16/17 Range/Units 21:35 23:10 WBC 16.00 H (4.8-10.8) 10^3/uL RBC 4.95 (4.20-5.40) 10^6/uL Hgb 15.4 (12.0-16.0) g/dL Hct 44.5 (37.0-47.0) % MCV 89.9 (81-99) FL MCH 31.1 H (27-31) PG MCHC 34.6 (33-37) g/dL RDW Std Deviation 45.1 (39-50) fL RDW Coeff of Derek 13.8 (11.5-14.5) % Plt Count 266 (140-350) 10*3/uL MPV 9.1 (7.4-12.2) FL Immature Gran % (Auto) 0.3 (0-5) % Neut % (Auto) 83.2 H (50-80) % Lymph % (Auto) 5.1 L (10-50) % [place] % (Auto) 10.6 (5-15) % Eos % (Auto) 0.5 (0-8) % Baso % (Auto) 0.3 (0-1) % Immature Gran # (Auto) 0.05 10*3/UL Neut # (Auto) 13.32 10*3/UL Lymph # (Auto) 0.82 10*3/uL [place] # (Auto) 1.69 H (0.3-0.8) 10*3/UL Eos # (Auto) 0.08 10*3/UL Baso # (Auto) 0.04 10*3/UL WBC Morphology Comment Normal morphology (NORM) Plt Morphology Comment Normal morphology (NORM) RBC Morph Comment Normal morphology (NORM) Sodium 137 (135-145) meq/L Potassium 3.5 L (3.8-5.2) meq/L Chloride 105 (98-112) meq/L Carbon Dioxide 20 L (23-33) meq/L Anion Gap 12 (5-20) BUN 14 (7-22) mg/dL Creatinine 0.8 (0.50-1.20) mg/dL Estimated GFR > 60 (>60 ml/min/1.73m(2)) BUN/Creatinine Ratio 17.50 (6-20) Glucose 93 (78-110) mg/dL Calculated Osmolality 284.0 (267-292) mOsm/kg Calcium 9.1 (8.7-10.7) mg/dL Total Bilirubin 0.9 (0.3-1.2) mg/dL AST 18 (8-39) IU/L ALT 26 (9-52) IU/L Alkaline Phosphatase 112 (38-126) IU/L C-Reactive Protein 2.7 H (0.0-0.9) mg/dL Total Protein 7.6 (6.1-8.0) g/dL Albumin 4.1 (3.5-4.8) g/dL Globulin 3.4 (2.50-4.10) g/dL Albumin/Globulin Ratio 1.20 L (1.3-2.0) mg/g Amylase 82 (30-110) U/L Lipase 58 (23-300) IU/L Ur Collection Type Clean catch urine Urine Color Yellow Urine Clarity Clear (CLEAR) Urine pH 6.0 (5.0-8.5) Ur Specific [place] 1.013 (1.005-1.030) Urine Protein Negative (NEG) mg/dl Urine Glucose (UA) Negative (NEG) mg/dL Urine Ketones Negative (NEG) Urine Occult Blood Moderate H (NEG) Urine Nitrate Negative (NEG) Urine Bilirubin Negative (NEG) Urine Urobilinogen 0.2 (0.2) EU/dL Ur Leukocyte Esterase Small (NEG) Urine RBC 1-3 (NONE) /hpf Urine WBC 9-14 (NONE) Ur Squamous Epith Cells Few (NONE) Ur Renal Epithelial Cell None (NONE) Urine Crystals None Urine Bacteria Moderate (NONE) Urine Casts Rare (NONE) Urine Mucus None (NONE) Urine Trichomonas None (NONE) Urine Yeast None (NONE) Ur Culture Indicated? Culture set Assessment and Plan - Patient Problems (1) Endometriosis Current Visit: Yes Status: Acute Comment: was asked by dr finn to admit patient for him by Dr olsen. he reccomended she receive invanz in er by Dr Olsen. he would see in am. pt is stable not septic according to Dr Olsen no need to go see her at this time and am would be fine. I did discuss the case with Dr. Wendy Corrales she will be taking over the case will hold antibiotics at this point until overall patient is improved without any pain continue hydration (2) Hypokalemia Current Visit: Yes Status: Acute Comment: saline with k at 125 hour improved now within normal range at 3.8. IV and continue some replacement by mouth (3) Leukocytosis Current Visit: Yes Status: Acute Comment: Secondary to endometriosis improved from 16,000 and 14,000
[2017-01-17] MEDS ORDERED: MORPHINE SULFATE 2 MG/1 ML IVP PRN (01:07)
[2017-01-17] MEDS ORDERED: ONDANSETRON 4 MG/2 ML VIAL IVP PRN (01:07)
[2017-01-17] MEDS ORDERED: LIDOCAINE W/ SODIUM BICARB 0.5 ML SYR SUBD PRN (01:07)
[2017-01-17] MEDS ORDERED: NORMAL SALINE 10 ML SYRINGE FLUSH IVP PRN (01:07)
[2017-01-17] MEDS: 1/2NS + 20mEq KCL 1,000 ML PRIMARY IV SCH ×2 (02:06→17:13)
[2017-01-17] MEDS: LEVOTHYROXINE 88 MCG TABLET PO SCH (04:40)
[2017-01-17] MEDS ORDERED: ACETAMINOPHEN 325 MG TABLET PO PRN (04:44)
[2017-01-17] MEDS: Prenatal Multivitamin Tab 1 TAB TAB PO SCH (08:30)
[2017-01-17 10:23] LABS: BASOPHILS # (AUTO) 0.05 10*3/UL; BASOPHILS % (AUTO) 0.4 % (0-1); EOSINOPHILS # (AUTO) 0.06 10*3/UL; EOSINOPHILS % (AUTO) 0.4 % (0-8); HEMATOCRIT 42.3 % (37.0-47.0); HEMOGLOBIN 14.3 g/dL (12.0-16.0); LYMPHOCYTES # (AUTO) 1.98 10*3/uL; MEAN CORPUSCULAR HGB CONC 33.8 g/dL (33-37); MEAN CORPUSCULAR VOLUME 91.8 FL (81-99); MONOCYTES # (AUTO) 1.44 10*3/UL (0.3-0.8); MONOCYTES % (AUTO) 10.3 % (5-15); NEUTROPHILS # (AUTO) 10.44 10*3/UL; NEUTROPHILS % (AUTO) 74.5 % (50-80); RED BLOOD COUNT 4.61 10^6/uL (4.20-5.40)
[2017-01-17 10:30] LABS: PLATELET MORPHOLOGY COMMENT NORMAL MORPHOLOGY (NORM); RBC MORPHOLOGY COMMENT NORMAL MORPHOLOGY (NORM); WBC MORPHOLOGY COMMENT NORMAL MORPHOLOGY (NORM)
[2017-01-17 10:43] LABS: BLOOD UREA NITROGEN 11 mg/dL (7-22); BUN/CREATININE RATIO 13.75 (6-20); CALCIUM 8.4 mg/dL (8.7-10.7); EST GLOMERULAR FILTRATION > 60 (>60 ml/min/1.73m(2)); SERUM ALBUMIN 3.5 g/dL (3.5-4.8)
--- NOTE | 2017-01-17 13:06 | DI ---
CT ABD W/CN AND PELVIS W/CN,01/16/2017 9:22 PM Clinical History: Abdominal pain Previous Exam: None at this facility. Findings: Multiple helically acquired CT images are obtained through the abdomen and pelvis following the intra venous administration of contrast, and demonstrate clear lung bases. The liver, spleen, gallbladder, pancreas, adrenals and kidneys are unremarkable. The appendix is norm al. The uterus is enlarged. The urinary bladder is unremarkable. There is no mesenteric or retroperitonea l lymphadenopathy. There is a fat-containing umbilical hernia noted. The subcutaneous fat and anterior abdominal wall are otherwise unremarkable. Impression: Enlarged slightly heterogeneous uterus otherwise unremarkable.
--- NOTE | 2017-01-17 13:42 | DI ---
HISTORY: bleeding and pelvic pain. COMPARISON: None available. TECHNIQUE: Ultrasound of the pelvis was performed using grayscale, color Doppler, and spectral Doppl er imaging techniques. FINDINGS: The uterus is heterogeneously enlarged with a mild amount of complex material in the endom etrial canal; nonspecific . While not definitive in favor or against retained products of conception, there are no focal areas of hyperemia. The ovaries are not seen. The urinary bladder is well-distended. IMPRESSION: 1. Heterogeneously enlarged uterus with a mild amount of complex endometrial canal material; nonspeci fic . 2. Ovaries are not imaged. NOTE: The interpreting Radiologist was not present at the time of ultrasound interrogation.
[2017-01-17] MEDS: IBUPROFEN 800 MG TABLET PO PRN ×2 (14:11→22:17)
[2017-01-17] MEDS ORDERED: Ertapenem Inj 1 GM in Sodium Chloride 0.9% 100 ML IV SCH (20:00)
[2017-01-17] MEDS: POTASSIUM CHLORIDE 20 MEQ TAB PO SCH (20:45)
[2017-01-17 20:54] VITALS: RESP 18
[2017-01-18 04:38] LABS: BASOPHILS # (AUTO) 0.04 10*3/UL; BASOPHILS % (AUTO) 0.4 % (0-1); EOSINOPHILS # (AUTO) 0.13 10*3/UL; EOSINOPHILS % (AUTO) 1.2 % (0-8); HEMATOCRIT 39.6 % (37.0-47.0); HEMOGLOBIN 13.5 g/dL (12.0-16.0); LYMPHOCYTES # (AUTO) 2.22 10*3/uL; MEAN CORPUSCULAR HEMOGLOBIN 31.3 PG (27-31); MEAN CORPUSCULAR HGB CONC 34.1 g/dL (33-37); MEAN CORPUSCULAR VOLUME 91.7 FL (81-99); MEAN PLATELET VOLUME 9.1 FL (7.4-12.2); MONOCYTES # (AUTO) 1.15 10*3/UL (0.3-0.8); MONOCYTES % (AUTO) 10.4 % (5-15); NEUTROPHILS # (AUTO) 7.48 10*3/UL; NEUTROPHILS % (AUTO) 67.5 % (50-80); RED BLOOD COUNT 4.32 10^6/uL (4.20-5.40)
[2017-01-18 04:48] LABS: PLATELET MORPHOLOGY COMMENT NORMAL MORPHOLOGY (NORM); RBC MORPHOLOGY COMMENT NORMAL MORPHOLOGY (NORM); WBC MORPHOLOGY COMMENT NORMAL MORPHOLOGY (NORM)
[2017-01-18 04:54] LABS: BLOOD UREA NITROGEN 13 mg/dL (7-22); BUN/CREATININE RATIO 16.25 (6-20); CALCIUM 8.4 mg/dL (8.7-10.7); EST GLOMERULAR FILTRATION > 60 (>60 ml/min/1.73m(2)); LIPASE 74 IU/L (23-300); SERUM ALBUMIN 3.3 g/dL (3.5-4.8)
[2017-01-18] MEDS: LEVOTHYROXINE 88 MCG TABLET PO SCH (05:30)
[2017-01-18 07:19] VITALS: TEMP 97.7
[2017-01-18] MEDS: POTASSIUM CHLORIDE 20 MEQ TAB PO SCH (08:49)
[2017-01-18] MEDS: Prenatal Multivitamin Tab 1 TAB TAB PO SCH (08:49)
--- NOTE | 2017-01-21 23:38 | DCSUMMARY ---
Hospitalization Summary Admit Date: 01/16/17 Discharge Date: 01/18/17 Primary Diagnosis:: Endomyometritis Hospital Course: Ms. Baez is a 26 yo , who is 1 week following a vaginal delivery at 39 weeks. She was GBS negative. Time of rupture of membranes to delivery of her son was 7 hours. She reports that, on the day of admission, she initially had low back pain, which progressed into left lower quadrant pain with chills and fever. Her vaginal bleeding had increased maybe just slightly. She presented to the ER, where CT scan and clinical exam suggested endomyometritis. She was started on Invanz, which she tolerated well, as well as IVF. She received 2 doses of the Invanz and remained afebrile x more than 24 hours. At that point, she was requesting discharge home and was clinically improved enough to warrant this--her LLQ pain had resolved completely. Exam - Vitals Vital Signs: Vital Signs Temperature 97.7 F Temperature Source Oral Pulse Rate [Pulse Oximeter] 64 Pulse Rate 96 Respiratory Rate 18 Blood Pressure [Left Arm] 110/71 Blood Pressure 128/95 Pulse Ox 95 Oxygen Delivery Method Room Air Height 5 ft 8 in Weight 243 lb 6.4 oz - General General Appearance: POSITIVE: No Acute Distress, Cooperative - Head Head Exam: POSITIVE: Normal Inspection - Eye Eye Exam: POSITIVE: Normal Appearance - Respiratory Respiratory Exam: POSITIVE: Clear to Auscultation - Bilaterally, Breathing Non Labored - Cardiovascular Cardiovascular Exam: POSITIVE: RRR, No Murmur - GI/Abdominal GI/Abdominal Exam: POSITIVE: Normal Bowel Sounds, Non Tender, Non Distended, Soft - External Exam: POSITIVE: Normal External Inspection. NEGATIVE: Swelling - Extremities Extremities Exam: POSITIVE: Normal Inspection, Full ROM, Normal Capillary Refill , No Clubbing Present - Neurological Neurological Exam: POSITIVE: Alert, Oriented x 3, Reflexes Normal, Normal Gait - Psychiatric Psychiatric Exam: POSITIVE: Normal Affect, Normal Mood - Integumentary Integumentary Exam: POSITIVE: Normal Color, Warm, Dry Patient Problems - Patient Problem List (1) Endomyometritis Status: Acute
== END 2017-01-18 10:08 | disposition home or self-care (01) | DRG 776 ==
LOC: ER 21:04 → MED/SURG 01-17 00:04
PROVIDERS: ADMIT Internal Medicine; ATTEND Internal Medicine
DX: O86.12 Endometritis following delivery (principal); N71.0 Acute inflammatory disease of uterus; N80.9 Endometriosis, unspecified; E87.6 Hypokalemia; D72.829 Elevated white blood cell count, unspecified
CPT/HCPCS: 36415; 74177; 76857; 80053; 81001; 81003; 82150; 83605; 83690; 85025; 86140; 87040; 87077; 87088; 87186; 94761; 96361; 96374; 96375; 99285; J1335; J2270; J2405; J7030; J7050